=== PATIENT | male | born 1965 | race Caucasian/White ===

== ENCOUNTER → 2025-04-16 | Day surgery (SDC) | payer OTHER ==
[~2025-04-16] MED LIST: MORPHINE SULFATE 4 MG/ML VIAL IV ONE
== END | disposition home or self-care (01) ==
LOC: AMB-ERCP 08:00
PROVIDERS: ATTEND Internal Medicine
DX: K80.50 Calculus of bile duct without cholangitis or cholecystitis without obstruction (principal); K83.09 Other cholangitis; R93.2 Abnormal findings on diagnostic imaging of liver and biliary tract